=== PATIENT | male | born 1970 | race Hispanic/Latino ===

== ENCOUNTER 2017-12-05 19:14 | Emergency (ER) | payer SELFPAY ==
[~2017-12-05] VITALS: Ht 177.8 cm; Wt 99.8 kg
--- NOTE | 2017-12-05 20:45 | Diagnostic Imaging Report ---
EXAMINATION: Head and cervical spine CT without contrast. HISTORY: Head trauma, head and neck pain COMPARISON: None. TECHNIQUE: Multidetector axial images were obtained without contrast from the foramen magnum to the vertex and through the cervical spine. The images were reconstructed using brain and bone algorithms. Thin section brain images were reformatted into coronal and sagittal planes. HEAD CT FINDINGS: Skull: No lytic or blastic lesions. No fractures. Parenchyma: Normal. No mass, hemorrhage or CT evidence of acute vascular insult. Brain volume: Normal for age. Ventricles: No hydrocephalus or displacement. Arteries: No density suggestive of thrombus. Dural sinuses: No abnormal density. Extra-axial spaces: No abnormal density. Foramen magnum: No mass, Chiari malformation, or basilar invagination. Sella: No obvious mass. Paranasal/mastoid sinuses: Imaged portions unremarkable. CERVICAL SPINE CT FINDINGS: Alignment:Reversal of the cervical lordosis.. Soft tissues: Normal. Vertebrae: Normal height and density. No acute fracture, infection or neoplasm. Minimal chronic wedging of the C5 and C6 vertebral bodies. Minimal partial ossification of the posterior glenoid ligament from C3 to C5 without significant. Degenerative changes: C1-C2: Normal C2-C3: Normal C3-C4: Facet arthrosis mainly on the right without stenoses. C4-C5: Facet arthrosis mainly on the right without stenoses C5-C6: Facet arthrosis mainly on the right without stenoses C6-C7: Mild bilateral uncovertebral hypertrophy. Mild bilateral C7-T1: Bilateral facet arthrosis. Mild bilateral foraminal stenosis IMPRESSION: Head CT: No intracranial abnormality, particularly no hemorrhage. Cervical spine CT: 1. No acute fractures or dislocations. 2. Chronic degenerative changes as described. Note: Acute post traumatic spinal cord, vascular or ligamentous injury cannot adequately be assessed with CT. Signed by: Dr. Clara Byrd M.D. on 12/05/2017 8:42 PM
--- NOTE | 2017-12-05 20:56 | Diagnostic Imaging Report ---
EXAMINATION: CT of the lumbar spine HISTORY: Trauma, head, neck and back pain COMPARISON: None TECHNIQUE: Multidetector helical axial images were obtained without contrast from L1 to S1. The images were reconstructed using bone and soft tissue algorithms and were viewed in axial, sagittal, and coronal planes. FINDINGS: Alignment: Normal alignment and lordosis. Vertebral bodies: -Normal height and density. -Degenerative changes of the costovertebral joined at T12 bilaterally. -Minimal chronic anterior wedging of the L1 vertebral body, may represent remote trauma, correlate with past medical history. -Shallow Schmorl's nodes T12-L3. Paraspinal muscles: Normal. Intervertebral disks: L1-L2: Normal. L2-L3: Mild symmetric bulge without canal or foraminal stenosis. L3-L4: Mild asymmetric to without significant canal or foraminal stenosis. L4-L5: Facet arthrosis, minimal retrolisthesis. Symmetric disc bulge, ligamenta flava thickening and facet arthrosis. Mild canal and bilateral foraminal stenosis. L5-S1: Minimal symmetric disc bulge, prominent facet arthrosis mainly on the right side. Mild foraminal stenoses mainly on the right. IMPRESSION: 1. No acute fractures or dislocations. 2. Mild chronic degenerative changes as detailed above. 3. Note is made that acute posttraumatic cauda equina, ligamentous or vascular injury cannot adequately be assessed with CT. Signed by: Dr. Clara Byrd M.D. on 12/05/2017 8:53 PM
[2017-12-05 23:17] VITALS: BP 139/89
== END 2017-12-05 23:20 | disposition home or self-care (01) ==
LOC: ER 19:14
DX: S00.83XA Contusion of other part of head, initial encounter (principal); R51 Headache; M54.2 Cervicalgia; S16.1XXA Strain of muscle, fascia and tendon at neck level, initial encounter; W22.8XXD Striking against or struck by other objects, subsequent encounter
CPT/HCPCS: 70450; 72125; 72131; 99283

== ENCOUNTER 2018-07-04 21:08 | Emergency (ER) | payer SELFPAY ==
[~2018-07-04] VITALS: Ht 177.8 cm; Wt 99.8 kg
--- OUTSIDE RECORDS SUMMARY | 2018-07-04 21:11 | XMS REPORT ---
[facility] Address Unknown Phone Unavailable Care Team Providers Care Water And Fire Technician Name Role Phone Adelaida OSMAN Unavailable Unavailable Problems This patient has no known problems. Allergies, Adverse Reactions, Alerts This patient has no known allergies or adverse reactions. Medications This patient has no known medications. Results Test Description Test Time Test Comments Text Results Atomic Results Result Comments CT LUMBAR SPINE WO 2017-12-05 20:43:00 [place] [address] Patient Name: LYNDA BECKER III MR #: [id number] : 1970 Age/Sex: 47/M Req #: [id number] [facility] Physician: Ordered by: ERIK OSMAN MD Report #: [id number] Location: ER Room/Bed: Procedure: [id number] CT/CT LUMBAR SPINE WO Exam Date: 12/05/17 Exam Time: 2007 REPORT STATUS: Signed ADDENDUM #1 Dose modulation, iterative reconstruction, and/or weight based adjustment of the mA/kV was utilized to reduce the radiation dose to as low as reasonably achievable. Signed by: Dr. Alessandra Scherer M.D. on 01/16/2018 12:11 PM ORIGINAL REPORT EXAMINATION: CT of the lumbar spine HISTORY: Trauma, head, neck and back pain COMPARISON: None TECHNIQUE: Multidetector helical axial images were obtained without contrast from L1 to S1. The images were reconstructed using bone and soft tissue algorithms and were viewed in axial, sagittal, and coronal planes. FINDINGS: Alignment: Normal alignment and lordosis. Vertebral bodies: -Normal height and density. -Degenerative changes of the costovertebral joined at T12 bilaterally. -Minimal chronic anterior wedging of the L1 vertebral body, may represent remote trauma, correlate with past medical history. -Shallow Schmorl's nodes T12-L3. Paraspinal muscles: Normal. Intervertebral disks: L1-L2: Normal. L2-L3: Mild symmetric bulge without canal or foraminal stenosis. L3-L4: Mild asymmetric to without significant canal or foraminal stenosis. L4-L5: Facet arthrosis, minimal retrolisthesis. Symmetric disc bulge, ligamenta flava thickening and facet arthrosis. Mild canal and bilateral foraminal stenosis. L5-S1: Minimal symmetric disc bulge, prominent facet arthrosis mainly on the right side. Mild foraminal stenoses mainly on the right. IMPRESSION: 1. No acute fractures or dislocations. 2. Mild chronic degenerative changes as detailed above. 3. Note is made that acute posttraumatic cauda equina, ligamentous or vascular injury cannot adequately be assessed with CT. Signed by: Dr. Alessandra Scherer M.D. on 12/05/2017 8:53 PM Dictated By: ALESSANDRA SCHERER MD [id number] Transcribed By: JULIO on 12/05/172052 COPY TO: ERIK OSMAN MD CT CERVICAL SPINE WO 2017-12-05 20:34:00 [place] [address] Patient Name: LYNDA BECKER III MR #: [id number] : 1970 Age/Sex: 47/M Req #: [id number] Adm Physician: Ordered by: ERIK OSMAN MD Report #: [id number] Location: ER Room/Bed: Procedure: [id number] CT/CT CERVICAL SPINE WO Exam Date: 12/05/17 Exam Time: 2007 REPORT STATUS: Signed ADDENDUM #1 Dose modulation, iterative reconstruction, and/or weight based adjustment of the mA/kV was utilized to reduce the radiation dose to as low as reasonably achievable. Signed by: Dr. Alessandra Scherer M.D. on 01/16/2018 11:54 AM ORIGINAL REPORT EXAMINATION: Head and cervical spine CT without contrast. HISTORY: Head trauma, head and neck pain COMPARISON: None. TECHNIQUE: Multidetector axial images were obtained without contrast from the foramen magnum to the vertex and through the cervical spine. The images were reconstructed using brain and bone algorithms. Thin section brain images were reformatted into coronal and sagittal planes. HEAD CT FINDINGS: Skull: No lytic or blastic lesions. No fractures. Parenchyma: Normal. No mass, hemorrhage or CT evidence of acute vascular insult. Brain volume: Normal for age. Ventricles: No hydrocephalus or displacement. Arteries: No density suggestive of thrombus. Dural sinuses: No abnormal density. Extra-axial spaces: No abnormal density. Foramen magnum: No mass, Chiari malformation, or basilar invagination. Sella: No obvious mass. Paranasal/mastoid sinuses: Imaged portions unremarkable. CERVICAL SPINE CT FINDINGS: Alignment:Reversal of the cervical lordosis.. Soft tissues: Normal. Vertebrae: Normal height and density. No acute fracture, infection or neoplasm. Minimal chronic wedging of the C5 and C6 vertebral bodies. Minimal partial ossification of the posterior glenoid ligament from C3 to C5 without significant. Degenerative changes: C1-C2: Normal C2-C3: Normal C3-C4: Facet arthrosis mainly on the right without stenoses. C4-C5: Facet arthrosis mainly on the right without stenoses C5-C6: Facet arthrosis mainly on the right without stenoses C6-C7: Mild bilateral uncovertebral hypertrophy. Mild bilateral C7-T1: Bilateral facet arthrosis. Mild bilateral foraminal stenosis IMPRESSION: Head CT: No intracranial abnormality, particularly no hemorrhage. Cervical spine CT: 1. No acute fractures or dislocations. 2. Chronic degenerative changes as described. Note: Acute post traumatic spinal cord, vascular or ligamentous injury cannot adequately be assessed with CT. Signed by: Dr. Alessandra Scherer M.D. on 12/05/2017 8:42 PM Dictated By: ALESSANDRA SCHERER MD [id number] Transcribed By: JULIO on 12/05/172041 COPY TO: ERIK OSMAN MD CT BRAIN WO 2017-12-05 20:34:00 [place] [address] Patient Name: LYNDA BECKER III MR #: [id number] : 1970 Age/Sex: 47/M Req #: [id number] Adm Physician: Ordered by: ERIK OSMAN MD Report #: [id number] Location: ER Room/Bed: Procedure: [id number] CT/CT BRAIN WO Exam Date: 12/05/17 Exam Time: 2007 REPORT STATUS: Signed ADDENDUM #1 Dose modulation, iterative reconstruction, and/or weight based adjustment of the mA/kV was utilized to reduce the radiation dose to as low as reasonably achievable. Signed by: Dr. Alessandra Scherer M.D. on 01/16/2018 11:54 AM ORIGINAL REPORT EXAMINATION: Head and cervical spine CT without contrast. HISTORY: Head trauma, head and neck pain COMPARISON: None. TECHNIQUE: Multidetector axial images were obtained without contrast from the foramen magnum to the vertex and through the cervical spine. The images were reconstructed using brain and bone algorithms. Thin section brain images were reformatted into coronal and sagittal planes. HEAD CT FINDINGS: Skull: No lytic or blastic lesions. No fractures. Parenchyma: Normal. No mass, hemorrhage or CT evidence of acute vascular insult. Brain volume: Normal for age. Ventricles: No hydrocephalus or displacement. Arteries: No density suggestive of thrombus. Dural sinuses: No abnormal density. Extra-axial spaces: No abnormal density. Foramen magnum: No mass, Chiari malformation, or basilar invagination. Sella: No obvious mass. Paranasal/mastoid sinuses: Imaged portions unremarkable. CERVICAL SPINE CT FINDINGS: Alignment:Reversal of the cervical lordosis.. Soft tissues: Normal. Vertebrae: Normal height and density. No acute fracture, infection or neoplasm. Minimal chronic wedging of the C5 and C6 vertebral bodies. Minimal partial ossification of the posterior glenoid ligament from C3 to C5 without significant. Degenerative changes: C1-C2: Normal C2-C3: Normal C3-C4: Facet arthrosis mainly on the right without stenoses. C4-C5: Facet arthrosis mainly on the right without stenoses C5-C6: Facet arthrosis mainly on the right without stenoses C6-C7: Mild bilateral uncovertebral hypertrophy. Mild bilateral C7-T1: Bilateral facet arthrosis. Mild bilateral foraminal stenosis IMPRESSION: Head CT: No intracranial abnormality, particularly no hemorrhage. Cervical spine CT: 1. No acute fractures or dislocations. 2. Chronic degenerative changes as described. Note: Acute post traumatic spinal cord, vascular or ligamentous injury cannot adequately be assessed with CT. Signed by: Dr. Alessandra Scherer M.D. on 12/05/2017 8:42 PM Dictated By: ALESSANDRA SCHERER MD 0934 Transcribed By: JULIO on 12/05/172041 COPY TO: ERIK OSMAN MD
[2018-07-04 21:58] LABS: BILIRUBIN,URINE NEGATIVE (NEGATIVE); CLARITY,URINE CLEAR (CLEAR); COLOR,URINE YELLOW (YELLOW); KETONES,URINE NEGATIVE (NEGATIVE); LEUKOCYTE ESTERASE ,URINE NEGATIVE (NEGATIVE); NITRITE,URINE NEGATIVE (NEGATIVE); PROTEIN,URINE DIPSTICK TRACE (NEGATIVE); URINE UROBILINOGEN 1 mg/dL (0.2 - 1)
[2018-07-04 22:08] LABS: AMORPHOUS SEDIMENT,URINE MODERATE (FEW); BACTERIA,URINE FEW /HPF; EPITHELIAL CELLS,URINE FEW /LPF; RBC,URINE 0-5 /HPF (0-5); WBC,URINE (MAN) 0-5 /HPF (0-5)
[2018-07-04 22:09] LABS: MUCUS,URINE MODERATE (RARE)
== END 2018-07-05 02:05 | disposition home or self-care (01) ==
LOC: ER 21:08
DX: R05 Cough (principal); J20.9 Acute bronchitis, unspecified; R10.32 Left lower quadrant pain; N45.1 Epididymitis
CPT/HCPCS: 81001; 99283

== ENCOUNTER 2019-04-26 17:06 | Emergency (ER) | payer SELFPAY ==
[~2019-04-26] VITALS: Ht 177.8 cm; Wt 99.8 kg
[2019-04-26 17:18] VITALS: BP 138/95
[2019-04-26] MEDS ORDERED: ALBUTEROL SULF 0.083% NEB SOLN 3 ML NEB NEB STA (17:19)
[2019-04-26] MEDS ORDERED: IPRATROPIUM BROMIDE 0.02% 2.5 ML NEB NEB STA (17:19)
[2019-04-26] MEDS ORDERED: DEXAMETHASONE SOD PHOS 10 MG/1 ML VIAL IM ONE (17:30)
--- NOTE | 2019-04-26 18:22 | Diagnostic Imaging Report ---
EXAMINATION: CHEST 2 VIEWS INDICATION: Cough, fever ^ORDER PLACED BY ^[id number] ^[id number] ^Y COMPARISON: None FINDINGS: PA and lateral views TUBES and LINES: None. LUNGS: Lungs are well inflated. Patchy left basilar airspace opacities. Right lung is clear. PLEURA: No pleural effusion or pneumothorax. HEART AND MEDIASTINUM: The cardiomediastinal silhouette is unremarkable.. BONES AND SOFT TISSUES: No focal osseous lesions. Soft tissues are unremarkable. UPPER ABDOMEN: Unremarkable. IMPRESSION: Patchy left basilar airspace opacities may represent atelectasis or pneumonia. Signed by: Dr. Marc Danielle MD on 04/26/2019 6:19 PM
== END 2019-04-26 18:14 | disposition home or self-care (01) ==
LOC: ER 17:06
DX: J02.0 Streptococcal pharyngitis (principal); J20.9 Acute bronchitis, unspecified
CPT/HCPCS: 71046; 99283; J1100